=== PATIENT | male | born 1975 | race Asian ===

== ENCOUNTER 2021-02-01 06:02 | Day surgery (SDC) | payer OTHER ==
[2021-01-31 14:44] LABS: COVID AG,FIA SOURCE NASOPHARYNGEAL
[~2021-02-01] VITALS: Ht 170.2 cm; Wt 86.8 kg
[~2021-02-01 06:02] MED LIST: SODIUM CHLORIDE 0.9% 1,000 ML ONE
[2021-02-01] MEDS ORDERED: LIDOCAINE 2% 30 ML JELLY TP ONE (06:03)
[2021-02-01] MEDS ORDERED: BENZOCAINE 20% 50 MCG/SPRAY 57 GM TP ONE (06:03)
[2021-02-01] MEDS ORDERED: ALBUTEROL SULFATE 2.5 MG/0.5 ML NEB SOLUTION NEB ONE (06:03)
[2021-02-01] MEDS ORDERED: LIDOCAINE 4% 50 ML SOLUTION TP ONE (06:03)
[2021-02-01] MEDS ORDERED: SODIUM CHLORIDE 0.9% 1,000 ML IV ONE (06:30)
[2021-02-01] MEDS ORDERED: AMLO5TAB66 PO (06:45)
[2021-02-01] MEDS ORDERED: AMIT50TA3 PO (06:45)
[2021-02-01] MEDS ORDERED: BICT1TAB PO (06:45)
[2021-02-01] MEDS ORDERED: FentaNYL CITRATE PF 100 MCG/2 ML VIAL ONE (07:29)
[2021-02-01] MEDS ORDERED: MIDAZOLAM HCL 2 MG/2 ML VIAL ONE (07:29)
[2021-02-01] MEDS ORDERED: MethylPREDNISolone SOD SUCC 125 MG/2 ML VIAL IVP ONE (09:00)
[2021-02-01] MEDS ORDERED: MethylPREDNISolone SOD SUCC 125 MG/2 ML VIAL ONE (09:11)
[2021-02-01] MEDS ORDERED: OXYGEN THERAPY IH SCH (20:00)
== END 2021-02-01 11:00 | disposition home or self-care (01) ==
LOC: SURGERY 06:02
PROVIDERS: ATTEND Internal Medicine Critical Care Medicine
DX: J38.4 Edema of larynx (principal); B37.0 Candidal stomatitis; I10 Essential (primary) hypertension; Z88.2 Allergy status to sulfonamides; F12.90 Cannabis use, unspecified, uncomplicated; Z90.49 Acquired absence of other specified parts of digestive tract; Z98.890 Other specified postprocedural states; J45.909 Unspecified asthma, uncomplicated; Z87.01 Personal history of pneumonia (recurrent); Z79.899 Other long term (current) drug therapy
CPT/HCPCS: 31623; 31624; 71045; 87015; 87070; 87101; 87205; 87206; 87220; 87426; 88108; 88184; 88185; 88312; 93005; C9803; J2250; J2930; J3010; J7030; J7613; Z7610